=== PATIENT | female | born 1955 | race Caucasian/White ===

== ENCOUNTER 2019-06-17 06:58 | Day surgery (SDC) | payer OTHER ==
[2019-06-14 11:14] VITALS: BMI 26.5
[2019-06-17] MEDS ORDERED: MIDAZOLAM HCL 2 MG/2 ML SINGLE DOSE VIAL ONE (08:58)
[2019-06-17] MEDS ORDERED: ceFAZolin SODIUM 1 GM VIAL ONE (09:16)
[2019-06-17] MEDS ORDERED: DEXAMETHASONE SOD PHOSPHATE 4 MG/1 ML VIAL ONE (09:26)
[2019-06-17] MEDS ORDERED: ONDANSETRON 4 MG/2 ML VIAL ONE (09:26)
[2019-06-17] MEDS ORDERED: BUPIVACAINE HCL/PF 0.25% (2.5MG/ML) 10 ML VIAL IJ ONE (09:35)
[2019-06-17] MEDS ORDERED: KETOROLAC TROMETHAMINE 30 MG/1 ML VIAL ONE (10:14)
[2019-06-17] MEDS ORDERED: KETOROLAC TROMETHAMINE 30 MG/1 ML VIAL IVPUSH ONE ×2 (10:18→11:31)
[2019-06-17 10:58] VITALS: TEMP 98.2
[2019-06-17 11:19] VITALS: BP 122/66; PULSE 74
[2019-06-17] MEDS ORDERED: ACETAMINOPHEN 325 MG TABLET (FP) PO PRN (11:31)
[2019-06-17] MEDS ORDERED: ONDANSETRON 4 MG/2 ML VIAL IVPUSH PRN (11:31)
--- NOTE | 2019-06-17 14:12 | OP ---
DATE OF OPERATION: 06/17/2019 Done at [facility] SURGEON: Danilo Viveros MD GERIATRIC NURSE PRACTITIONER: MARJAN Ibanez PREOPERATIVE DIAGNOSIS: Left 5th metacarpal distal metacarpal fracture. POSTOPERATIVE DIAGNOSIS: Left 5th metacarpal distal metacarpal fracture. PROCEDURE: Closed reduction and percutaneous pinning left 5th metacarpal fracture. FINDINGS: Rotated, displaced fracture distal 5th metacarpal. Post reduction anatomic alignment. DESCRIPTION OF PROCEDURE: Informed consent was obtained in the operating room where the left upper extremity was prepped and draped in sterile fashion. Tourniquet was placed to the upper arm but not inflated. Reduction maneuver was performed under C-arm fluoroscopy. Found to have adequate reduction. Alignment of the fingers was done to control and correct previous rotational deformity. Two 4.5 K-wires were placed from the lateral portion of the distal 5th metacarpal head cross the fracture into the radial portion. These found good stability and were confirmed with C-arm fluoroscopy with adequate reduction as well as purchase of the pins. Alignment of the fingers was found to match the opposite side with alignment and flexion across the MCP and PIP. Diffuse scar tissue across the MCP was noted and stiffened in the area. Scar massage and breaking of the scarring was performed prior to reduction. Pins were bent 90 degrees. Sterile dressing and splint were placed. Patient was transferred to the recovery room without complication. The PA listed above was present and assisted at surgery. Their presence was absolutely medically necessary for the completion of the procedure. They helped hold the arthroscopy, pass instruments (and implants when indicated) and the procedure could not have been completed without their assistance. DANILO VIVEROS M.D. [id number]
== END 2019-06-17 11:54 | disposition home or self-care (01) ==
LOC: FASU 06:58
PROVIDERS: ATTEND Orthopaedic Surgery
PROC: 0PSQ34Z Reposition Left Metacarpal with Internal Fixation Device, Percutaneous Approach (ICD-10-PCS; principal; 2019-06-17 09:24)
DX: S62.397A Other fracture of fifth metacarpal bone, left hand, initial encounter for closed fracture (principal); X58.XXXA Exposure to other specified factors, initial encounter; Y93.9 Activity, unspecified; Y92.9 Unspecified place or not applicable
CPT/HCPCS: 73130-TC-LT-FY; 94760

== ENCOUNTER → 2022-10-15 | Day surgery (SDC) | payer OTHER, BC ==
[2022-10-13 10:10] VITALS: BMI 27.2
[~2022-10-15] MED LIST: BSS (NA/CA/MG/K) BALANCED SALT SOLUTION OPHTH SOLN 15 ML BOTTLE ONE; CARBACHOL 0.01% INTRA-OCULAR 1.5 ML VIAL ONE; MIDAZOLAM HCL 2 MG/2 ML SINGLE DOSE VIAL ONE; NEO/POLYMYX B SULF/DEXAMETH OPHTHALMIC 5ML BOTTLE ONE
[2022-10-15] MEDS: PHENYLEPHRINE 2.5% OPTHALMIC DROP 2ML BOTTLE ONE ×3 (11:10→11:20)
[2022-10-15] MEDS: CYCLOPENTOLATE 2% OPHTH SOLN 2 ML BOTTLE ONE ×3 (11:10→11:20)
[2022-10-15] MEDS: CIPROFLOXACIN 0.3% EYE DROPS 5 ML BOTTLE ONE ×3 (11:10→11:20)
[2022-10-15] MEDS: TROPICAMIDE 1% OPHTH SOLN 15 ML BOTTLE ONE ×3 (11:10→11:20)
[2022-10-15 11:13] VITALS: TEMP 97.8
[2022-10-15 13:59] VITALS: PULSE 64; RESP 18
[2022-10-15 14:02] VITALS: BP 112/77
== END | disposition home or self-care (01) ==
LOC: FASU 10:31
PROVIDERS: ATTEND Ophthalmology
PROC: 08RJ3JZ Replacement of Right Lens with Synthetic Substitute, Percutaneous Approach (ICD-10-PCS; principal; 2022-10-15 13:07)
DX: H26.8 Other specified cataract (principal)
CPT/HCPCS: 66984; V2632

== ENCOUNTER 2022-11-19 08:26 | Day surgery (SDC) | payer OTHER, BC ==
[2022-11-14 10:35] VITALS: BMI 27.2
[2022-11-19] MEDS ORDERED: LIDOCAINE 1% P/F 10 MG/ML VIAL ONE (08:46)
[2022-11-19] MEDS ORDERED: BSS (NA/CA/MG/K) BALANCED SALT SOLUTION OPHTH SOLN 15 ML BOTTLE ONE (08:46)
[2022-11-19] MEDS ORDERED: TETRACAINE 0.5% OPHTH SOLN 2 ML BOTTLE ONE (08:46)
[2022-11-19] MEDS ORDERED: CARBACHOL 0.01% INTRA-OCULAR 1.5 ML VIAL ONE (08:47)
[2022-11-19] MEDS ORDERED: NEO/POLYMYX B SULF/DEXAMETH OPHTHALMIC 5ML BOTTLE ONE (08:47)
[2022-11-19 08:57] VITALS: RESP 20
[2022-11-19] MEDS: CIPROFLOXACIN 0.3% EYE DROPS 5 ML BOTTLE ONE ×3 (09:05→09:15)
[2022-11-19] MEDS: PHENYLEPHRINE 2.5% OPTHALMIC DROP 2ML BOTTLE ONE ×3 (09:05→09:15)
[2022-11-19] MEDS: TROPICAMIDE 1% OPHTH SOLN 15 ML BOTTLE ONE ×3 (09:05→09:15)
[2022-11-19] MEDS: CYCLOPENTOLATE 2% OPHTH SOLN 2 ML BOTTLE ONE ×3 (09:05→09:15)
[2022-11-19] MEDS ORDERED: ONDANSETRON 4 MG/2 ML VIAL ONE (10:20)
[2022-11-19] MEDS ORDERED: MIDAZOLAM HCL 2 MG/2 ML SINGLE DOSE VIAL ONE ×2 (10:20→11:03)
[2022-11-19 11:37] VITALS: PULSE 73; TEMP 97.6
[2022-11-19 12:07] VITALS: BP 117/72
== END 2022-11-19 12:25 | disposition home or self-care (01) ==
LOC: FASU 08:26
PROVIDERS: ATTEND Ophthalmology
PROC: 08RK3JZ Replacement of Left Lens with Synthetic Substitute, Percutaneous Approach (ICD-10-PCS; principal; 2022-11-19 10:51)
DX: H26.8 Other specified cataract (principal)
CPT/HCPCS: 66984; V2632